=== PATIENT | male | born 1980 | race Caucasian/White ===

== ENCOUNTER 2025-06-08 08:04 | Emergency (ER) | payer BC ==
[~2025-06-08] VITALS: Ht 167.6 cm; Wt 81.6 kg
[2025-06-08] MEDS ORDERED: NAPR-1009 PO (08:23)
[2025-06-08] MEDS ORDERED: CAPS42.513 TP (08:23)
[2025-06-08] MEDS ORDERED: KETOROLAC TROMETHAMINE INJ 30 MG/ML VIAL ONE (08:30)
[2025-06-08] MEDS: KETOROLAC TROMETHAMINE INJ 30 MG/ML VIAL IM ONE (08:36)
[2025-06-08 08:40] VITALS: BP 150/89; TEMP 98.5; O2SAT 99
[2025-06-09] MEDS ORDERED: LISD60CA PO (10:37)
[2025-06-09] MEDS ORDERED: NEBI5TAB8 PO (10:37)
[2025-06-10] MEDS ORDERED: HYDR-3972 PO (10:37)
[2025-06-10] MEDS ORDERED: METH750T3 PO (10:37)
== END 2025-06-08 08:40 | disposition home or self-care (01) ==
LOC: ER 08:07
DX: M54.50 Low back pain, unspecified (principal)
CPT/HCPCS: 99283; 96372; J1885

== ENCOUNTER 2025-06-09 05:53 | Inpatient (IN) | payer BC ==
[~2025-06-09] VITALS: Ht 167.6 cm; Wt 81.6 kg
[~2025-06-09 05:53] MED LIST: CAPS42.513 TP; NAPR-1009 PO
[2025-06-09] MEDS ORDERED: KETOROLAC TROMETHAMINE 15 MG/ML VIAL ONE (06:38)
[2025-06-09] MEDS ORDERED: DIAZEPAM 5 MG/ML 2 ML DISP.SYRIN ONE (06:38)
[2025-06-09] MEDS: KETOROLAC TROMETHAMINE 15 MG/ML VIAL IV ONE (06:52)
[2025-06-09] MEDS: DIAZEPAM 5 MG/ML 2 ML DISP.SYRIN IV ONE (06:52)
[2025-06-09] MEDS: IV NS 0.9% 1,000 ML BAG IV ONE (06:52)
[2025-06-09] MEDS ORDERED: HYDROMORPHONE 1 MG/1 ML DISP.SYRIN ONE (08:28)
[2025-06-09] MEDS ORDERED: ONDANSETRON HCL/PF 4 MG/2 ML VIAL ONE (08:28)
[2025-06-09] MEDS: HYDROMORPHONE 1 MG/1 ML DISP.SYRIN IV ONE (08:35)
[2025-06-09] MEDS: ONDANSETRON HCL/PF 4 MG/2 ML VIAL IVP ONE (08:36)
[2025-06-09 08:59] LABS: PLATELET COUNT (AUTO) 190 K/uL (150-450); RED BLOOD CELL COUNT(AUTO) 4.73 MIL/uL (4.5-6.0); RED CELL DISTRIBUTION WIDTH 12.4 % (11.5-15.0); WHITE BLOOD COUNT (AUTO) 6.3 K/uL (4.3-11.0)
[2025-06-09 09:06] LABS: CALCIUM, SERUM 8.7 mg/dL (8.5-10.1); CREATININE 1.1 mg/dL (0.6-1.3); SODIUM SERUM 139.0 mmol/L (136-145); UREA NITROGEN, BLOOD 26.0 mg/dL (7-18)
[2025-06-09 09:42] VITALS: O2SAT 95
[2025-06-09] MEDS ORDERED: hydrALAZINE HCL IV 20 MG VIAL IV PRN (10:00)
[2025-06-09] MEDS ORDERED: ACETAMINOPHEN 325 MG TABLET PO PRN (10:00)
[2025-06-09] MEDS ORDERED: ONDANSETRON HCL/PF 4 MG/2 ML VIAL IVP PRN (10:00)
[2025-06-09] MEDS ORDERED: LISD60CA PO (10:37)
[2025-06-09] MEDS ORDERED: NEBI5TAB8 PO (10:37)
[2025-06-09] MEDS: METHOCARBAMOL (750MG) 750 MG TABLET PO ONE (13:31)
[2025-06-09] MEDS ORDERED: KETOROLAC TROMETHAMINE INJ 30 MG/ML VIAL MC PRN (15:30)
[2025-06-09] MEDS: LIDOCAINE 5% (PATCH) 1 EA PATCH TP SCH (15:42)
[2025-06-09] MEDS: METHOCARBAMOL (750MG) 750 MG TABLET PO SCH (17:30)
[2025-06-09] MEDS: MORPHINE SULFATE INJ 2 MG/ML DISP.SYRIN IV PRN (19:56)
[2025-06-09 20:27] VITALS: BP 142/92; TEMP 98.2; O2SAT 95
[2025-06-09] MEDS: HEPARIN SODIUM, PORCINE 5000 UNITS/1 ML VIAL SQ SCH (21:12)
[2025-06-10 07:37] LABS: WHITE BLOOD COUNT (AUTO) 5.6 K/uL (4.3-11.0)
[2025-06-10 07:38] LABS: PLATELET COUNT (AUTO) 321 K/uL (150-450); RED BLOOD CELL COUNT(AUTO) 6.27 MIL/uL (4.5-6.0); RED CELL DISTRIBUTION WIDTH 18.9 % (11.5-15.0)
[2025-06-10 07:40] LABS: ASPARTATE AMINOTRANSFERASE 10.0 U/L (15-37); CALCIUM, SERUM 9.2 mg/dL (8.5-10.1); CREATININE 0.6 mg/dL (0.6-1.3); PHOSPHORUS 3.8 mg/dL (2.5-4.9); SODIUM SERUM 139.0 mmol/L (136-145); TOTAL PROTEIN, SERUM 7.3 g/dL (6.4-8.2); UREA NITROGEN, BLOOD 14.0 mg/dL (7-18)
[2025-06-10 08:00] VITALS: BP 130/78; TEMP 97.7; O2SAT 97
[2025-06-10] MEDS: METOPROLOL TARTRATE 25 MG TABLET PO SCH (09:25)
[2025-06-10] MEDS ORDERED: METH750T3 PO (10:37)
[2025-06-10] MEDS ORDERED: HYDR-3972 PO (10:37)
[2025-06-10 16:00] VITALS: BP 142/92; TEMP 98; O2SAT 100
[2025-06-10 20:00] VITALS: BP 135/84; TEMP 97.9; O2SAT 95
[2025-06-10] MEDS: HYDROCODONE/APAP 5/325MG TABLET PO PRN (23:58)
[2025-06-11 08:00] VITALS: BP 136/97; TEMP 97.5; O2SAT 95
[2025-06-11 08:21] VITALS: BP 136/97
== END 2025-06-11 10:30 | disposition home or self-care (01) | DRG 552 ==
LOC: ER 05:57 → MED 11:10
PROVIDERS: ADMIT Internal Medicine; ATTEND Internal Medicine
DX: M51.26 Other intervertebral disc displacement, lumbar region (principal); M62.830 Muscle spasm of back; Z79.899 Other long term (current) drug therapy; I10 Essential (primary) hypertension; F98.8 Other specified behavioral and emotional disorders with onset usually occurring in childhood and adolescence
CPT/HCPCS: 36415; 72148-TC; 80048-TC; 80053-TC; 83735-TC; 84100-TC; 85025-TC; G0378; J1171; J1644; J1885; J2270; J2405; J3360; J7030